=== PATIENT | female | born 1945 | race Caucasian/White ===

== ENCOUNTER → 2017-12-22 | Day surgery (SDC) | payer BC ==
[2017-12-03 14:35] VITALS: Ht 170.2 cm; Wt 90.9 kg
[~2017-12-22] VITALS: Ht 170.2 cm; Wt 90.9 kg
[~2017-12-22] MED LIST: 500ML BSS 0.3ML EPI 1:1000PF IRRIG ONE; ACETAMINOPHEN 325 MG TAB PO PRN; AMVISC PLUS 0.8ML SYRINGE INT OCU ONE; APPLCAP PO; ATROPINE SULFATE 0.1 MG/ML 5ML SYR IV PRN; BSS FLUSH ONE; CINN500C13 PO; CRAN405C3 PO; CYAN50005 PO; ENDOCOAT 0.85ML SYRINGE INT OCU ONE; EpHEDrine SULFATE INJ 50 MG/ML AMP IV PRN; EpINEphrine INJ 1MG/ML AMP 1 MG/ML AMP ONE; FLAX1CAP11 PO; GLC/500 PO; GLUC1CAP35 PO; INUL1CHW2 PO; KRIL1CAP24 PO; LACTATED RINGER'S 1000ML 1,000 ML IV SCH; LIDOCAINE 4% OP SOLN DROP CHARGE ONE; LIDOCAINE 4% OP SOLN DROP CHARGE OPL SCH; LIDOCAINE HCL 1% MPF 2 ML VIAL ONE; MIDAZOLAM HCL 1 MG/ML 2ML VIAL ONE; MIX: 4ML BSS 1ML EPI 1:1000 PF TOP ONE; MOXIFLOXACIN OPH SOLN PER DROP CHARGE ONE; MULT-506 PO; NAPR1TAB9 PO; ONDANSETRON INJ 2 MG/ML 2 ML VIAL IV PRN; POVIDONE-IODINE OP SOLN 30 ML BTL ONE; PROPARACAINE 0.5% OP SOLN PER DROP CHARGE OPL SCH; SACC250C11 PO; TOBRAMYCIN/DEXAMETHASONE OPH OINT PER APPLN CHARGE ONE; TURM500T PO
[2017-12-22] MEDS: PHENYLEPHRINE HCL 2.5% OP SOLN PER DROP CHARGE OPL SCH ×3 (06:43→06:51)
[2017-12-22] MEDS: TROPICAMIDE 1% OP SOLN PER DROP CHARGE OPL SCH ×3 (06:44→06:52)
[2017-12-22] MEDS: CYCLOPENTOLATE HCL 1% OP SOLN PER DROP CHARGE OPL SCH ×3 (06:45→06:52)
[2017-12-22] MEDS: MOXIFLOXACIN OPH SOLN PER DROP CHARGE OPL SCH ×3 (06:46→06:53)
--- NOTE | 2017-12-22 06:50 | History & Physical Bridge - [place] ---
H&P Re-Evaluation Bridge Note: I have examined the patient, reviewed the History & Physical and in the interval since the performance of the History & Physical I have noted the following changes of clinical significance: No changes noted
--- NOTE | 2017-12-22 07:24 | [facility] Post Operative Brief Note ---
Immediate Operative Summary Operative Date December 22, 2017. Pre-Operative Diagnosis Left Eye Cataract Post-Operative Diagnosis same as pre op Procedure(s) Performed Left Cataract Phacoemulsification With Intraocular Lens Implant; Toric Lens Surgeon Dr Contreras Founder Surgeon(s) none Estimated Blood Loss 0ml Findings Consistent with Post-Op Diagnosis Specimens none Anesthesia Type MAC Complication(s) none Disposition Accompanied Pt To Recovery: no Disposition:
--- NOTE | 2017-12-22 07:26 | [facility] Operative Report ---
Operative Report Date of Service December 22, 2017. Operative Report DATE OF OPERATION: 12/22/17 PREOPERATIVE DIAGNOSIS: Senile nuclear cataract and astigmatism, left eye POSTOPERATIVE DIAGNOSIS: Senile nuclear cataract and astigmatism, left eye PROCEDURE PERFORMED: Phacoemulsification with toric intraocular lens implantation, left eye SURGEON: Dr. Ravi Contreras ANESTHESIA: Topical with 1% intracameral lidocaine and monitored anesthesia care COMPLICATIONS: None DESCRIPTION OF PROCEDURE: After positively identifying the patient both verbally and by wristband in the preoperative area, the left eye was marked as the operative eye. Using a Robomarker, the 8 degree axis was marked after placing a drop of proparacaine. The patient was then brought back to the operating room by the anesthesia and nursing staff where they were given a drop of tetracaine and betadine into the operative eye. They were then sterilely prepped and draped in the standard fashion typical for ophthalmic surgery. Steri-strips were placed along the upper eyelids to keep the lashes back, and a lid speculum was placed into the operative eye. At this point, a documented time out was performed with members of the ophthalmology, nursing, and anesthesia staffs all agreeing upon the correct patient, correct location for surgery, correct procedure, and correct type and power of intraocular lens to be implanted. The microscope was then swung into position. Then, a paracentesis wound was made using a sideport blade. Then, in sequence, 1% preservative-free lidocaine followed by Endocoat viscoelastic was injected into the anterior chamber. Next , the main incision was made with a keratome blade in triplanar fashion. A sharp cystotome was introduced into the eye and used to create a tear in the anterior capsule, which was directed into a continuous curvilinear capsulorrhexis using Utrata forceps. Hydrodissection was then performed with BSS on a flat-tip cannula. Next, the phacoemulsification handpiece was introduced into the eye and used to remove the nucleus in a [id number] fashion. This was done without complication and then the irrigation-aspiration handpiece was introduced into the eye and used to remove all remaining cortical and epinuclear material. Amvisc was then injected into the anterior chamber as well as into the capsular bag and using the lens injector system, a [id number] 22.5 D lens, serial number [id number], and expiration date 03/2021 was injected into the capsular bag and rotated into the correct position to correctly line up with the toric marking. Next, the irrigation-aspiration handpiece was used to remove all remaining Amvisc. BSS was used to hydrate the main wound, and then BSS was injected into the paracentesis site to reach physiologic pressure and then the main wound was checked and found to be watertight. The patient was given drops of Vigamox and tobradex ointment into the operative eye, and then the surrounding area was cleaned and dried. A clear plastic shield was placed over the eye and the patient was then sat up and taken from the operating room by the anesthesia staff having tolerated the procedure well and suffering no complications. DISPOSITION: The patient was returned to the recovery room in stable condition. I attest to the content of the Intraoperative Record and any orders documented therein. Any exceptions are noted below.
--- NOTE | 2017-12-22 07:27 | Discharge Instructions-SurgCtr ---
Discharge Instructions Date of Service December 22, 2017. Visit Reason for Visit: Left Cataract Discharge Discharge Diagnosis / Problem: left cataract Discharge Goals Goal(s): Decrease discomfort, Improve function Medications Stopped Medications Name(s): Metformin stopped December 19 Activity Recommendations Activity Limitations: as noted below Anesthesia . Post Anesthesia Instructions: If you have had General Anesthesia or IV Sedation: * Do not drive today. * Resume driving when surgeon permits. * Do not make important decisions or sign legal documents today. * Call surgeon for: 1. Temperature elevations greater than 101 degrees F. 2. Uncontrollable pain. 3. Excessive bleeding. 4. Persistent nausea and vomiting. 5. Medication intolerance (nausea, vomiting or rash). * For nausea and vomiting use only clear liquids such as: tea, soda, bouillon until nausea subsides, then gradually increase diet as tolerated. * If you have any concerns or questions, call your surgeon's office. If physician is unavailable and it is an emergency, call 911 or go to the nearest emergency room. . Instructions / Follow-Up Instructions / Follow-Up ACTIVITY RECOMMENDATIONS: * Light activities. * You may walk outside, read, watch television. * You may notice redness on the white part of the eye and some blurry vision - this is normal. MEDICATIONS: Resume previous medications unless instructed otherwise by your surgeon. Start all eye drops at 9:30 am today: * Eye drops (today): Prednisone - one drop in operative eye every 2 hours while awake Polytrim - one drop in operative eye every 2 hours while awake Prolensa - one drop in operative eye daily SPECIAL CARE INSTRUCTIONS: * Tape plastic shield over eye to sleep at night. Call your doctor at with any concerns or problems. FOLLOW UP VISIT: Follow-up with Dr Contreras at [place] office as scheduled. Diet Recommendations Home Diet: no limitations Procedures Procedures Performed: Left Cataract Phacoemulsification With Intraocular Lens Implant; Toric Lens Pending Studies Studies pending at discharge: no Medical Emergencies . Who to Call and When: Medical Emergencies: If at any time you feel your situation is an emergency, please call 911 immediately. . Non-Emergent Contact Non-Emergency issues call your: Surgeon . . "Provider Documentation" section prepared by Ravi Contreras. .
[2017-12-22 07:52] VITALS: BP 122/80; PULSE 71; O2SAT 94
--- NOTE | 2017-12-22 07:57 | Anesthesiology Progress Note ---
Anesthesia Post Op Note Date & Time December 22, 2017 at 07:57 Vital Signs Pain Intensity: 0 Vital Signs Past 12 Hours Date Time Temp Pulse Resp B/P (MAP) Pulse Ox O2 Delivery O2 Flow Rate FiO2 12/22/17 07:52 71 18 122/80 (94) 94 Room Air 12/22/17 07:28 36.4 75 16 118/78 (91) 97 Room Air 12/22/17 06:30 36.7 82 16 149/87 (107) 95 Room Air Notes Mental Status: alert / awake / arousable, participated in evaluation Pt Amnestic to Procedure: Yes Nausea / Vomiting: adequately controlled Pain: adequately controlled Airway Patency, RR, SpO2: stable & adequate BP & HR: stable & adequate Hydration State: stable & adequate Anesthetic Complications: no major complications apparent
== END | disposition home or self-care (01) ==
LOC: X.SURG 06:11
PROVIDERS: ATTEND Ophthalmology
DX: E11.36 Type 2 diabetes mellitus with diabetic cataract (principal); H25.12 Age-related nuclear cataract, left eye; H52.202 Unspecified astigmatism, left eye; Z90.710 Acquired absence of both cervix and uterus; Z98.890 Other specified postprocedural states; Z79.899 Other long term (current) drug therapy; E66.9 Obesity, unspecified; Z68.31 Body mass index [BMI] 31.0-31.9, adult

== ENCOUNTER 2019-03-24 04:49 | Inpatient (IN) ==
--- NOTE | 2019-02-27 11:01 | Anesthesiology Consultation ---
Date of Service February 27, 2019 Assessment & Plan (1) Encounter for pre-operative examination: - No previous anesthesia records re: intubation Chart Review Chart Review: Patient seen in Pre Admission Testing Consults Requested none Teaching & Discussion Pre-Anesthesia Teaching/Discussion Notes: Instructed NPO after midnight before surgery, except medications with 15 cc of water. Medication instructions provided according to the PAT guidelines. History Surgery Operation Date: 03/24/19 08:50 Proposed Procedures p Left Total Knee Arthroplasty - Patrick Treadwell DO Height/Weight Height: 5 ft 7 in Weight: 113.5 kg Allergies Allergy/AdvReac Type Severity Reaction Status Date / Time metronidazole Allergy Unknown sores in Verified 02/21/19 10:53 mouth atorvastatin AdvReac Intermediate MYALGIAS Verified 02/21/19 10:53 cheese AdvReac Mild Italian Verified 02/21/19 10:53 cheese - itchy mouth Penicillins AdvReac Mild AMOXIL-DIAR Verified 02/21/19 10:53 JUAN J Cipro AdvReac Unknown FAMILY Verified 01/12/18 06:22 REACTION R/T TENDON RUPTURE ciprofloxacin AdvReac Unknown FAMILY Verified 02/21/19 10:54 REACTION R/T TENDON RUPTURE Medications Home Medications Medication Instructions Recorded Confirmed Last Taken apple cider vinegar 600 mg PO QAM 09/17/18 02/21/19 Unknown cinnamon bark [Cinnamon] 500 mg PO QAM 09/17/18 02/21/19 Unknown cyanocobalamin (vitamin B-12) 5,000 mcg PO 2XWK 09/17/18 02/21/19 Unknown glucosamine-chondroitin 1 tab PO QAM 09/17/18 02/21/19 Unknown multivitamin [Multiple Vitamins] 1 tab PO QAM 09/17/18 02/21/19 Unknown acetaminophen 500 mg PO DAILY PRN 02/21/19 02/21/19 Unknown cranberry 500 mg PO BID 02/21/19 02/21/19 Unknown ibuprofen 400 mg PO QAM 02/21/19 02/21/19 Unknown krill oil 500 mg PO QAM 02/21/19 02/21/19 Unknown lactobacillus combination no.4 3,000 mmu cells PO QAM 02/21/19 02/21/19 Unknown [Probiotic] loratadine 10 mg PO DAILY PRN 02/21/19 02/21/19 Unknown metformin 500 mg PO QDD 02/21/19 02/21/19 Unknown psyllium husk [Fiber (psyllium 0.52 g PO QAM 02/21/19 02/21/19 Unknown husk)] turmeric root extract 538 mg PO QAM 02/21/19 02/21/19 Unknown Past Medical History Medical History DJD (degenerative joint disease) of knee Diabetes mellitus, type 2 History of shingles Seasonal allergies Exercise / Class Metabolic Activity III < 4 Walking/Shop/Light housework (Light Housework. Can climb 2 FOS with pain. Denies CP or SOB with activity. ) Past Family History Family History Grandmother (Paternal) Family history of diabetes mellitus Past Surgical History Surgical History History of meniscectomy of left knee History of tonsillectomy and adenoidectomy Hx of bilateral cataract extraction Hx of vaginal hysterectomy ovaries remained Past Anesthesia History No Hx of Anesthesia Complications and No Family Hx of Anesthesia Complications History of PONV No Hx of PONV and No Hx of Motion Sickness (Not since childhood) Social History Smoking Status: Never smoker Do You Dip or Chew Tobacco: No Hx Alcohol Use: No Hx Substance Use: No Review of Systems Patient denies chest pain, shortness of breath, dyspnea on exertion, reflux, cough, wheezing, palpitations. +Joint Pain (Knees) Physical Exam Vital Signs BP: 146/86 P: 66 R: 16 T: 98.3 SPO2: 97% on RA Constitutional + morbidly obese ENMT Mouth: + macroglossia Thyromental Distance: < 3.5 Finger Breadths (2) Mallampati Class: II Neck normal visual inspection and trachea midline; neck extension not limited Respiratory normal respiratory effort Auscultation: lungs clear to auscultation bilaterally Cardiovascular Rate/Rhythm: regular rate and regular rhythm Heart Sounds: no murmur Vessels: no carotid bruit Neurologic moves all extremities Psychiatric Orientation: alert and oriented x 3 Testing Laboratory Results 02/27/19 11:44 02/27/19 11:44 PT 10.5 Seconds (9.0-12.0) 02/27/19 11:44 INR 1.0 (0.9-1.1) 02/27/19 11:44 APTT 24.4 Seconds (21.0-31.0) 02/27/19 11:44 Hemoglobin A1c 6.0 % (4.5-5.6) H 02/27/19 11:44 Urine Color Yellow 02/27/19 11:44 Urine Appearance Clear (Clear) 02/27/19 11:44 Urine pH 5.0 (4.5-7.5) 02/27/19 11:44 Ur Specific [place] 1.021 (1.000-1.030) 02/27/19 11:44 Urine Protein Negative (Negative) 02/27/19 11:44 Urine Glucose (UA) Negative (Negative) 02/27/19 11:44 Urine Ketones Trace (Negative) H 02/27/19 11:44 Urine Nitrite Negative (Negative) 02/27/19 11:44 Ur Leukocyte Esterase Trace (Negative) H 02/27/19 11:44 Urine WBC (Auto) 1-5 /hpf (0-5) 02/27/19 11:44 Urine RBC (Auto) 0-4 /hpf (0-4) 02/27/19 11:44 U Hyaline Cast (Auto) 1-5 /lpf (0-5) 02/27/19 11:44 U Epithel Cells (Auto) >30 /lpf (0-5) H 02/27/19 11:44 Urine Bacteria (Auto) Negative (Negative) 02/27/19 11:44 Blood Type O Negative 02/27/19 11:44 Antibody Screen NEGATIVE 02/27/19 11:44 Spoke to bloodbank regarding + direct antiglobulins. There stated that it is not positive enough to effect antibodies, but they did note it and will be able to make sure that blood is available for patient day of surgery. Nothing needs done as far as PAT is concerned. Electrocardiogram Date: 02/27/19 Findings: + NSR @ (69) Nonspecific T wave abnormality When compared with ECG of 04/24/13, Premature ventricular complexes are no longer present Chest X-Ray Date: 02/27/19 Findings: + NAD FINDINGS: The heart is at the upper limits of normal in size. There is no failure. There is no focal pulmonary consolidation. There are no pleural effusions. There is a linear band of subsegmental atelectasis at the left lung base IMPRESSION: No active disease in the chest.
--- NOTE | 2019-02-27 11:08 | PAT Medication Instructions ---
Medication Instructions Date of Service February 27, 2019 Home Medications apple cider vinegar 600 mg PO QAM cinnamon bark [Cinnamon] 500 mg PO QAM cyanocobalamin (vitamin B-12) 5,000 mcg PO 2XWK glucosamine-chondroitin 1 tab PO QAM multivitamin [Multiple Vitamins] 1 tab PO QAM acetaminophen 500 mg PO DAILY NEEDED cranberry 500 mg PO BID ibuprofen 400 mg PO QAM krill oil 500 mg PO QAM lactobacillus combination no.4 [Probiotic] 3,000 mmu cells PO QAM loratadine 10 mg PO DAILY NEEDED metformin 500 mg PO QDD psyllium husk [Fiber (psyllium husk)] 0.52 g PO QAM turmeric root extract 538 mg PO QAM ASK your surgeon for instructions ibuprofen 400 mg PO QAM STOP taking 2 weeks before surgery cinnamon bark [Cinnamon] 500 mg PO QAM glucosamine-chondroitin 1 tab PO QAM krill oil 500 mg PO QAM turmeric root extract 538 mg PO QAM DO NOT take the morning of surgery apple cider vinegar 600 mg PO QAM cyanocobalamin (vitamin B-12) 5,000 mcg PO 2XWK multivitamin [Multiple Vitamins] 1 tab PO QAM cranberry 500 mg PO BID lactobacillus combination no.4 [Probiotic] 3,000 mmu cells PO QAM loratadine 10 mg PO DAILY NEEDED psyllium husk [Fiber (psyllium husk)] 0.52 g PO QAM Take morning of surgery With a small sip of water, OTHERWISE NOTHING TO EAT OR DRINK AFTER MIDNIGHT: acetaminophen 500 mg PO DAILY NEEDED (if needed; stop 4 hours before surgery) Take evening before surgery acetaminophen 500 mg PO DAILY NEEDED (if needed) cranberry 500 mg PO BID metformin 500 mg PO QDD Other Notes If you have any questions please call us at [phone] or [phone] or [phone] or [phone]
[2019-02-27 12:20] LABS: Basophils # (auto) 0.05 K/uL (0-0.2); Basophils % (auto) 1.1 %; Eosinophils % (auto) 4.2 %; Hematocrit (blood only) 45.3 % (37-47); Hemoglobin 15.1 g/dL (12.0-16.0); Immature Granulocytes # (auto) 0.01 K/uL (0.00-0.02); Immature Granulocytes % (auto) 0.2 %; Lymphocytes % (auto) 37.8 %; Mean Corpuscular Hgb Conc 33.3 g/dL (32-36); Mean Platelet Volume 11.4 fL (7.4-10.4); Monocytes # (auto) 0.23 K/uL (0.11-0.59); Monocytes % (auto) 4.8 %; Neutrophils # (auto) 2.47 K/uL (1.4-6.5); Neutrophils % (auto) 51.9 %; Platelet Count 156 K/uL (130-400); RDW Coefficient of Variation 13.7 % (11.5-14.5); RDW Standard Deviation 40.6 fL (36.4-46.3); Red Blood Count 5.59 M/uL (4.2-5.4); White Blood Count 4.76 K/uL (4.8-10.8)
--- NOTE | 2019-02-27 12:28 | XRay Report ---
XR chest Pre-admission PA/Lat CLINICAL HISTORY: Preoperative chest COMPARISON STUDY: 04/23/2013 FINDINGS: The heart is at the upper limits of normal in size. There is no failure. There is no focal pulmonary consolidation. There are no pleural effusions. There is a linear band of subsegmental atele ctasis at the left lung base[ IMPRESSION: No active disease in the chest. Electronically signed by: Luis Gresham M.D. 02/27/2019 12:26 PM
[2019-02-27 12:33] LABS: Partial Thromboplastin Ratio 0.9; Partial Thromboplastin Time 24.4 Seconds (21.0-31.0); Prothrombin Time 10.5 Seconds (9.0-12.0)
[2019-02-27 13:02] LABS: Appearance Urine Clear (Clear); Bacteria Urine Automated Negative (Negative); Bilirubin Urine Negative (Negative); Blood Urine Negative (Negative); Color Urine Yellow; Epithelial Cell Urine Auto >30 /lpf (0-5); Glucose Urine UA Negative (Negative); Ketones Urine Trace (Negative); Leukocyte Esterase Urine Trace (Negative); Nitrite Urine Negative (Negative); Protein Urine Negative (Negative); RBC Urine Automated 0-4 /hpf (0-4); Specific Gravity Urine 1.021 (1.000-1.030); Urobilinogen Urine Negative (Negative)
[2019-02-27 13:23] LABS: Estimated Average Glucose 126 mg/dl
[2019-02-27 14:18] LABS: BUN Creatinine Ratio 24.2 (10-20); Calcium 9.7 mg/dl (8.5-10.1); Creatinine Clr Calc Pharmacy 85.4 ml/min; Est GFR (African American) 91.9; Est GFR (Non-African American) 79.3; Potassium 4.3 mmol/L (3.5-5.1)
[2019-03-24] MEDS ORDERED: FAMOTIDINE 20 MG TAB PO SCH (06:00)
[2019-03-24] MEDS ORDERED: ACETAMINOPHEN 500 MG TAB PO SCH (06:00)
[2019-03-24] MEDS ORDERED: CEFAZOLIN 2000MG 2,000 MG/15 ML SYR IV SCH (06:00)
[2019-03-24] MEDS ORDERED: GABAPENTIN 300 MG CAP PO SCH (06:00)
[2019-03-24] MEDS ORDERED: LR 60ML/HR IV SCH (06:00)
[2019-03-24] MEDS ORDERED: TRANEXAMIC ACID 1,000 MG **IV Pre-op IV SCH (06:00)
[2019-03-24] MEDS ORDERED: LR 500ML BOLUS, THEN 15ML/HR IV SCH (06:00)
[2019-03-24] MEDS ORDERED: ROPIVACAINE 0.5% HCL/PF 150 MG, BUPIVACAINE 0.5% MPF 30 ML, EPINEPHrine 30MG/30ML (OR U... INSTIL SCH (06:00)
[2019-03-24] MEDS ORDERED: ROPIVACAINE 0.5% 5 MG/ML 30 ML VIAL ONE (06:26)
[2019-03-24] MEDS ORDERED: BUPIVACAINE 0.5 % 5 MG/1 ML PF 10ML VIAL ONE (06:26)
[2019-03-24] MEDS ORDERED: TRANEXAMIC ACID 1,000 MG **IV Intra-op IV SCH (06:30)
[2019-03-24] MEDS ORDERED: ORTHO JOINT ANESTHETIC ONE (06:38)
[2019-03-24] MEDS ORDERED: LIDOCAINE HCL 2% 2 ML VIAL/AMP(20MG/ML) INFIL ONE (06:39)
[2019-03-24] MEDS ORDERED: fentaNYL citrate 100 MCG/2 ML VIAL ONE (06:39)
[2019-03-24] MEDS ORDERED: MIDAZOLAM HCL 1 MG/ML 2ML VIAL ONE (06:39)
[2019-03-24] MEDS ORDERED: PROPOFOL IV EMULSION 10 MG/ML 20 ML VIAL IV ONE ×2 (06:39→08:30)
--- NOTE | 2019-03-24 06:43 | History & Physical Bridge Note ---
Date of Service March 24, 2019 History & Physical Bridge Note I have examined the patient, reviewed the History & Physical and in the interval since the performance of the History & Physical I have noted the following changes of clinical significance: no changes noted
--- NOTE | 2019-03-24 06:46 | History & Physical Report ---
Date of Service March 24, 2019 Assessment & Plan (1) Osteoarthritis of left knee: We will proceed with a left total knee arthroplasty. Postoperatively she will be kept overnight in the hospital for postoperative medical management. We will use aspirin postoperatively for DVT prophylaxis. She plans to use energy physical therapy upon discharge. Present on Admission?: Yes History of Present Illness Chief Complaint: Primary osteoarthritis of the left knee Primary Care Provider: Joe Rivero DO Ashley is a pleasant 73-year-old female who is been having a 20-year history of increasing left knee pain. She had a cartilage procedure done over 50 years ago when she was younger. X-rays and clinical examination were diagnostic for advanced osteoarthritis of the left knee. After failing conservative treatment. She has elected to proceed with a left total knee arthroplasty. Allergies Allergy/AdvReac Type Severity Reaction Status Date / Time Cipro AdvReac Unknown FAMILY Verified 01/12/18 06:22 REACTION R/T TENDON RUPTURE Home Medications Home Medications Medication Instructions Recorded Confirmed Type apple cider vinegar 600 mg PO QAM 09/17/18 03/24/19 History cinnamon bark [Cinnamon] 500 mg PO QAM 09/17/18 03/24/19 History cyanocobalamin (vitamin B-12) 5,000 mcg PO 2XWK 09/17/18 03/24/19 History glucosamine-chondroitin 1 tab PO QAM 09/17/18 03/24/19 History multivitamin [Multiple Vitamins] 1 tab PO QAM 09/17/18 03/24/19 History acetaminophen 500 mg PO DAILY PRN 02/21/19 03/24/19 History cranberry 500 mg PO DAILY 02/21/19 03/24/19 History ibuprofen 400 mg PO QAM 02/21/19 03/24/19 History krill oil 500 mg PO QAM 02/21/19 03/24/19 History lactobacillus combination no.4 3,000 mmu cells PO QAM 02/21/19 03/24/19 History [Probiotic] loratadine 10 mg PO DAILY PRN 02/21/19 03/24/19 History metformin 500 mg PO QDD 02/21/19 03/24/19 History psyllium husk [Fiber (psyllium 0.52 g PO QAM 02/21/19 03/24/19 History husk)] turmeric root extract 538 mg PO QAM 02/21/19 03/24/19 History Past Med/Surg History Medical History Anaplasmosis (Acute) DJD (degenerative joint disease) of knee Diabetes mellitus, type 2 History of shingles Seasonal allergies Surgical History History of meniscectomy of left knee Hx of bilateral cataract extraction Hx of vaginal hysterectomy ovaries remained History of tonsillectomy and adenoidectomy Family History Grandmother (Paternal) Family history of diabetes mellitus Social History Preferred Language: Nigerian Communication Ability: Effective Beliefs That Will Affect Care: None Current Living Situation: Spouse Feels Safe at Home: Yes Safety Concerns: Feels Safe At This Time Smoking Status: Never smoker Do You Dip or Chew Tobacco: No ; Second Hand Exposure: No ; Hx Alcohol Use: No Hx Substance Use: No Review of Systems All systems reviewed & are unremarkable except as noted in HPI & below Physical Exam Constitutional: WD/WN, vitals as above Eyes: PERRL, conjunctivae normal, anicteric sclerae ENMT: external ear and nose normal, oropharynx normal Neck: trachea midline, no thyromegaly Respiratory: normal respiratory effort Cardiovascular: RRR, no murmur, no edema Gastrointestinal (Abdomen): normal bowel sounds, soft, nontender, no hepatosplenomegaly Musculoskeletal: On physical examination of the left knee there is a trace ef fusion. There is near full range of motion and no evidence of instability. There is significant tenderness palpation along the medial and lateral joint lines and over the distal femoral condyles. Psychiatric: A+Ox3, euthymic affect Results & Data Vital Signs (Past 12 Hours) Vital Signs Temp Pulse Resp BP Pulse Ox 03/24/19 05:44 37.2 C 83 20 149/84 H 95 Diagnostic Findings Radiographs of the left knee demonstrate advanced osteoarthritis with joint space narrowing osteophyte formation and [id number] articulation.
[2019-03-24] MEDS ORDERED: HYDROmorphone INJ 1 MG/ML SYRINGE IV PRN (07:22)
[2019-03-24] MEDS ORDERED: ONDANSETRON INJ 2 MG/ML 2 ML VIAL IV PRN ×2 (07:22→11:09)
[2019-03-24] MEDS ORDERED: ATROPINE SULFATE 0.1 MG/ML 10ML SYR IV PRN (07:22)
[2019-03-24] MEDS ORDERED: KETOROLAC 30 MG/ML VIAL IV PRN (07:22)
[2019-03-24] MEDS ORDERED: ePHEDrine sulfate 50 MG/ML AMP IV PRN (07:22)
[2019-03-24] MEDS ORDERED: ONDANSETRON INJ 2 MG/ML 2 ML VIAL ONE (07:43)
[2019-03-24] MEDS ORDERED: PHENYLEPHRINE 100MCG/ML 5ML SYR ONE (08:30)
--- NOTE | 2019-03-24 08:46 | Operative Report ---
Post Operative Report Pre & Post Diagnosis Operation Date: 03/24/19 07:00 Pre-Op Diagnosis: Left Knee Degenerative Joint Disease Post-Op Diagnosis: Left Knee Degenerative Joint Disease Procedure Operation Date: 03/24/19 07:00 Actual Procedures p Left Total Knee Arthroplasty(Left) - Patrick Treadwell DO Surgeon Patrick Treadwell DO Physicist [place] Patrick Paredes PAC Estimated Blood Loss 20 Findings Consistent with Post-Op Diagnosis Specimens Left femoral and tibial bone Complications none Disposition Disposition: Recovery Room Indications Ashley is a pleasant 73-year-old female who presented my office with chronic increasing left knee pain. X-rays and clinical examination were diagnostic for primary osteoarthritis of the left knee. After failing conservative treatment, she elected proceed with a left total knee arthroplasty. Description of Procedure Implants used: I used a [employer]omet Vanguard total knee arthroplasty system with a size 67.5 femur, 75 tibia, 31 patella, and a size 10 PS polyethylene bearing. All components were cemented in place with Palacos G cement. The patient arrived [facility] for the above procedure. There were seen in the preoperative holding area and the operative extremity was identified and signed. There were given a preoperative antibiotic, a spinal anesthetic and an adductor nerve block. There were taken back to the operating room and laid on the table in supine position. There were given basic sedation. The operative knee was then prepped and draped in sterile fashion. A timeout was done, and the patient and the operative extremity was properly identified. A midline incision was made directly over the patella. Dissection was taken down to the extensor mechanism. A subvastus arthrotomy was used. The medial retinaculum was released and the fat pad was mostly left intact. The knee was flexed and the ACL, PCL, and meniscus were removed. A drill was sent down the center of the femoral canal followed by an intramedullary pratibha. Off that pratibha a distal femoral cutting block was placed. 9 mm was resected off the distal femur at 5 of valgus. A posterior referencing AP sizing guide was then placed on the distal femur. The femur measured to be a size 67.5. 2 drill holes were placed in 3 of external rotation. A 4-in-1 cutting block was then impacted into place. Anterior posterior and chamfer cuts were then made. The posterior stabilizing box guide was then impacted into place and the box was resected for the posterior stabilizing component. The proximal tibia was then exposed. A drill was sent down the center of the tibial canal followed by an intramedullary pratibha. Off that pratibha a proximal tibial resection guide was placed. The proximal tibia was then resected. The tibia measured to be a size 75. The tibial plate was then placed in the appropriate rotation and the tibia was punched. The posterior aspect of the knee was then opened up and any additional meniscus fragments and osteophytes were removed. Trial components were then placed. I used a size 10 PS polyethylene insert. The knee was brought through a full range of motion and felt to be stable. The patella was then everted and 8 mm was resected off the posterior aspect of the patella. The patella measured to be a size 31. 3 peg holes were then drilled. A trial patella was placed. The knee was once again brought through a full range of motion and felt to be stable. Trial components were then removed. The surrounding soft tissues were injected with 100 cc of an orthopedic pain control cocktail. All components were then cemented into place with Palacos G cement. The final polyethylene insert was then snapped into place and the anterior bar was locked. Once cement was dry the tourniquet was deflated. Hemostasis was obtained. A dilute betadyne lavage was then done for 3 minutes. The joint was then irrigated with normal saline solution. The subvastus arthrotomy was then closed with #1 Vicryl suture. The skin was closed with 2-0 Vicryl, 3-0V lock suture, and alexy. A soft compressive dressing was placed. The patient was then transferred to a hospital bed and taken to the postanesthesia care unit in stable condition. They tolerated the procedure well. I attest to the content of the Intraoperative Record and any orders documented therein. Any exceptions are noted below.
--- NOTE | 2019-03-24 09:52 | XRay Report ---
LEFT KNEE 2 VIEWS History: Left total knee arthroplasty. Degenerative arthritis. Postop. FINDINGS: The patient is status post a left total knee arthroplasty. The hardware is intact. No fract ure or dislocation. Skin alexy in place. IMPRESSION: Left total knee arthroplasty. No evidence for hardware complication. Electronically signed by: Sushil Rebollar M.D. 03/24/2019 9:50 AM
--- NOTE | 2019-03-24 10:19 | Anesthesiology Progress Note ---
Date of Service March 24, 2019 Anesthesia Post Procedure Vital Signs Vital Signs: Temp Pulse Pulse Resp BP Pulse Ox 03/24/19 10:15 69 16 114/60 97 03/24/19 10:05 70 18 107/66 93 03/24/19 09:55 73 15 107/58 L 97 03/24/19 09:45 71 14 102/59 L 97 03/24/19 09:35 66 18 103/60 95 03/24/19 09:25 70 16 115/67 94 03/24/19 09:15 72 19 104/64 93 03/24/19 09:05 36.9 C 85 15 96/54 L 95 03/24/19 05:44 37.2 C 83 20 149/84 H 95 Transfer of Care Handoff Completed per policy Notes Mental Status: alert / awake / arousable Patient Amnestic to Procedure: Yes Nausea / Vomiting: adequately controlled Pain: adequately controlled Airway Patency, RR, SpO2: stable & adequate BP & HR: stable & adequate Hydration State: stable & adequate Neuraxial Anesthesia: was administered and sensory block is resolving Anesthetic Complications: no major complications apparent
[2019-03-24] MEDS ORDERED: BISACODYL 10 MG SUPP PR PRN (11:09)
[2019-03-24] MEDS ORDERED: HYDROmorphone INJ 0.5 MG/0.5 ML SYR IV PRN (11:09)
[2019-03-24] MEDS ORDERED: LORATADINE 10 MG TAB PO PRN (11:09)
[2019-03-24] MEDS ORDERED: MAGNESIUM HYDROXIDE SUSP 30 ML UDC PO PRN (11:09)
[2019-03-24] MEDS ORDERED: METOCLOPRAMIDE HCL INJ 5 MG/ML 2 ML VIAL IV PRN (11:09)
[2019-03-24] MEDS ORDERED: OXYCODONE HCL IR 5 MG TAB (IMMEDIATE RELEASE) PO PRN (11:09)
[2019-03-24] MEDS ORDERED: NALOXONE HCL 0.4 MG/1 ML VIAL/CARP IV PRN (11:09)
[2019-03-24] MEDS: SODIUM CHLORIDE 0.9% 1000ML 1,000 ML IV SCH ×2 (11:32→21:52)
[2019-03-24] MEDS: KETOROLAC TROMETHAMINE 15 MG/ML VIAL IV SCH ×3 (11:32→23:41)
[2019-03-24] MEDS ORDERED: PHARMACY GLYCEMIC MGMT CONSULT PRN (11:35)
[2019-03-24] MEDS ORDERED: DEXTROSE 50% 50 ML SYRINGE IV PRN (11:45)
[2019-03-24] MEDS ORDERED: CARBOHYDRATES FOR HYPOGLYCEMIA PO PRN (11:45)
[2019-03-24] MEDS ORDERED: GLUCOSE 40% GEL 15 GM TUBE PO PRN (11:45)
[2019-03-24] MEDS ORDERED: GLUCOSE 10 TABS/TUBE PO PRN (11:45)
[2019-03-24] MEDS ORDERED: GLUCAGON FOR INJ 1 MG VIAL IM PRN (11:45)
[2019-03-24] MEDS: INSULIN ASPART 100 UNITS/ML 3 ML PEN SC SCH ×3 (13:04→21:20)
[2019-03-24] MEDS: ACETAMINOPHEN 500 MG TAB PO SCH ×2 (13:22→21:19)
[2019-03-24] MEDS: CEFAZOLIN 2000MG 2,000 MG/15 ML SYR IV SCH ×2 (13:23→22:15)
--- NOTE | 2019-03-24 14:20 | Pharmacy Report ---
Glycemic Control Consultation - Date of Service March 24, 2019 - Scope Scope: Glycemic Pharmacist consulted by EMMA Paredes on 03/24/19 for glycemic control and to write orders per [facility] inpatient glycemic control protocol - Objective Weight: 111.7 kg Accuchecks BSG (last 24hrs): 03/24/19 03/24/19 03/24/19 05:32 09:13 12:16 POC Glucose 124 H 113 H 112 H HbA1c: Hemoglobin A1c 6.0 % (4.5-5.6) H 02/27/19 11:44 - Recent Pertinent Medications Outpatient Anti-diabetic Regimen: * metformin 500 mg QDD * A1c = 6.0 % Risk Factors for Insulin Resistance: * Steroids: dexamethasone 4 mg topically * Recent Surgery: POD 0 for L TKA * Diet: T2DM - Assessment & Plan Assessment & Plan: ASSESSMENT: * Ms Chaudhary is a 73 y/o F with a PMH of well controlled T2DM on oral medications. She presents with L TKA. * Since patient only received topical dexamethasone 4 mg with a WELL controlled outpatient HbA1C, will utilize weight-based stress of 2 Novolog (concern for using weight-based stress of 3 in obese individual -- may be too aggressive). Schedule small dose of Lantus for this evening depending on blood sugar. Goal is to cover blood sugar spikes with Novolog rather than Lantus * Pt is maintained on oral antidiabetic agents as an outpatient * Oral agents are not recommended for inpatient use d/t drug interactions, changing PO intake, and difficulty titrating for acute hyper/hypoglycemia. ADA recommends re-initiating outpatient oral agents 1-2 days prior to discharge if/when appropriate if they were held on admission. * Will hold oral agents for admission and utilize SQ basal bolus insulin regimen which is the recommended regimen for inpatient glycemic control. * Will initiate weight based insulin dosing for insulin mayelin patient and titrate based on BSG trends. * plan to resume metformin POD 1 or 2 depending on intake and kidney function * ADA & AACE recommend a goal blood sugar range 140-180 mg/dl for the majority of critically ill & non-critically ill patients. However, more stringent targets may be selected in individual cases. Will utilize more stringent goal of 110-140mg/dl based on patient age & comorbidities. Additionally, tighter glycemic control is warranted to facilitate wound/infection healing. PLAN FOR INPATIENT GLYCEMIC CONTROL: * Holding outpatient oral diabetes medications - plan to resume tomorrow or POD 2 * Basal insulin * Lantus 0-15 units SQ HS x 1 * no Lantus if blood sugar 160 mg/dL * 10 units if blood sugar 160-180 mg/dL * 15 units if blood sugar over 180 mg/dL * Bolus insulin * NovoLog per scale ACHS or Q6hrs while NPO * Goal Range: Low 110 mg/dL - High 140 mg/dL * Correction Factor: 25 mg/dL/unit * Nutritional / Prandial insulin per carb ratio of 1 unit per 8 grams CHO consumed RECOMMENDATION FOR DISCHARGE * patient's HbA1C well controlled - continue home regimen. * Please note that the plan above was derived based on current level of insulin resistance and hospital stress. These recommendations are appropriate for inpatient admission only. Plan of care upon discharge will need to be reassessed to avoid potential outpatient hypo/hyperglycemia. Thank you.
[2019-03-24] MEDS ORDERED: METFORMIN HCL 500 MG TAB PO SCH (16:30)
[2019-03-24] MEDS ORDERED: LANTUS PER UNIT CHARGE SQ SCH (21:00)
[2019-03-24] MEDS: SENNA 8.6 MG TAB PO SCH (21:19)
[2019-03-24] MEDS: DOCUSATE SODIUM 100 MG CAP PO SCH (21:19)
[2019-03-24] MEDS: ASPIRIN 81 MG ECTAB PO SCH (21:19)
[2019-03-25] MEDS: ACETAMINOPHEN 500 MG TAB PO SCH ×3 (05:16→21:28)
[2019-03-25] MEDS: KETOROLAC TROMETHAMINE 15 MG/ML VIAL IV SCH ×4 (05:16→23:47)
[2019-03-25 06:47] LABS: Hematocrit (blood only) 39.2 % (37-47); Mean Corpuscular Hgb Conc 33.2 g/dL (32-36); Mean Corpuscular Volume 80.5 fL (80-100); Mean Platelet Volume 10.6 fL (7.4-10.4); Platelet Count 142 K/uL (130-400); RDW Coefficient of Variation 13.5 % (11.5-14.5); RDW Standard Deviation 39.4 fL (36.4-46.3); Red Blood Count 4.87 M/uL (4.2-5.4); White Blood Count 7.61 K/uL (4.8-10.8)
--- NOTE | 2019-03-25 06:47 | Orthopedic Progress Note ---
Date of Service March 25, 2019 Assessment & Plan (1) Osteoarthritis of left knee: Overall she is doing fairly well. She will be seen by physical therapy this morning for ambulation and range of motion exercises. She is on aspirin twice a day for DVT prophylaxis. Tomorrow morning the dressing can be changed and she can be discharged to home with outpatient physical therapy. Present on Admission?: Yes Subjective Ashley was seen and examined at bedside this morning. Overall she is doing fairly well. She is not having much pain in the left knee. She was able to ambulate to the bathroom but she has not been into the hallways yet. She has no complaints. Physical Exam Musculoskeletal: On physical examination of the left knee, the dressing is clean and dry. Her legs out in full extension. She is active dorsiflexion and plantarflexion of her left ankle. She still is a little bit of numbness on the dorsal aspect of her foot. Results & Data Vital Signs (Past 12 Hours) Vital Signs Temp Pulse Pulse Resp BP Pulse Ox 03/25/19 03:00 36.4 C L 87 16 137/73 97 03/24/19 23:12 36.5 C 83 16 136/77 97 03/24/19 19:09 36.5 C 76 16 144/81 H 96 Diagnostic Findings Postoperative x-rays of the left knee show the prosthesis to be in anatomic alignment without any evidence of fracture, dislocation, or loosening. PG Care Time/CCT Total # of Minutes Spent Total Time Spent with Patient: Total time spent is greater than 50% in coordination of care (as documented) at patient's floor/unit and/or counseling patient:
[2019-03-25 07:25] LABS: Calcium 8.2 mg/dl (8.5-10.1); Creatinine Clr Calc Pharmacy 89.5 ml/min; Est GFR (African American) 98.2; Est GFR (Non-African American) 84.8; Potassium 3.9 mmol/L (3.5-5.1)
[2019-03-25] MEDS: MULTIVITAMIN TAB PO SCH (09:19)
[2019-03-25] MEDS: DOCUSATE SODIUM 100 MG CAP PO SCH ×2 (09:19→21:28)
[2019-03-25] MEDS: ASPIRIN 81 MG ECTAB PO SCH ×2 (09:19→21:28)
[2019-03-25] MEDS: INSULIN ASPART 100 UNITS/ML 3 ML PEN SC SCH ×4 (09:24→21:22)
[2019-03-25] MEDS ORDERED: METFORMIN HCL 500 MG TAB PO SCH (16:30)
[2019-03-25] MEDS: SENNA 8.6 MG TAB PO SCH (21:29)
[2019-03-26] MEDS: ACETAMINOPHEN 500 MG TAB PO SCH (05:29)
[2019-03-26] MEDS: KETOROLAC TROMETHAMINE 15 MG/ML VIAL IV SCH (05:29)
[2019-03-26] MEDS: DOCUSATE SODIUM 100 MG CAP PO SCH (07:29)
[2019-03-26] MEDS: ASPIRIN 81 MG ECTAB PO SCH (07:29)
[2019-03-26] MEDS: MULTIVITAMIN TAB PO SCH (07:29)
[2019-03-26] MEDS: INSULIN ASPART 100 UNITS/ML 3 ML PEN SC SCH (07:33)
--- NOTE | 2019-03-26 08:30 | Progress Note ---
DATE: 03/26/2019 SUBJECTIVE: A 73-year-old white female postop day 2 from a left knee replacement. She is doing pretty well. Pain is controlled. Therapy is going well. Denies any chest pain or shortness of breath. Not feeling dizzy or lightheaded. OBJECTIVE: VITAL SIGNS: Temperature 36.8. Vital signs stable. GENERAL: Shows a pleasant, middle-aged female. She is sitting up in her bedside chair, looks comfortable. EXTREMITIES: Examination of the left leg reveals the dressing to be in place. Just a little bit of bloody drainage. Calf is soft and supple. She can do a straight leg raise. She can dorsiflex and plantarflex her foot appropriately. She is neurologically intact. ASSESSMENT: A 73-year-old white female postoperative day 2 from a left knee replacement, doing well. Pain is controlled. She is neurologically intact. PLAN: We are going to continue DVT prophylaxis. She is planning to be discharged to home and do outpatient therapy. We will continue routine wound care. She will follow up with Dr. Treadwell in 2 weeks.
--- NOTE | 2019-03-30 09:23 | Discharge Summary ---
Date of Service March 30, 2019 Admission HPI Per Admitting Provider Ashley is a pleasant 73-year-old female who is been having a 20-year history of increasing left knee pain. She had a cartilage procedure done over 50 years ago when she was younger. X-rays and clinical examination were diagnostic for advanced osteoarthritis of the left knee. After failing conservative treatment. She has elected to proceed with a left total knee arthroplasty. Principal Diagnosis Left total knee arthroplasty Discharge Data Allergies Allergy/AdvReac Type Severity Reaction Status Date / Time Cipro AdvReac Unknown FAMILY Verified 01/12/18 06:22 REACTION R/T TENDON RUPTURE ciprofloxacin AdvReac Unknown FAMILY Verified 03/24/19 11:36 REACTION R/T TENDON RUPTURE Consultations 03/24/19 11:09 Consult Case Management - Discharge Planning Routine Procedures Performed Operation Date: 03/24/19 07:00 Actual Procedures p Left Total Knee Arthroplasty(Left) - Patrick Treadwell DO Ordered Studies 03/24/19 05:00 US - OR guided needle placemen Routine Hospital Course (1) Osteoarthritis of left knee: On March 24, 2019 Ashley arrived at [facility] and underwent a left total knee arthroplasty without complication. She had a spinal anesthetic and a left abductor nerve block. Postoperatively she was started on aspirin for DVT prophylaxis and discharged to general orthopedic floors. Her hospital course was uneventful. On postop day #1 her H&H was stable and her pain was well controlled. She was able to participate well with physical therapy doing ambulation and range of motion exercises. On postop day #2 the dressing was changed. She continued to do well. She participated well with physical therapy. She was then discharged home with outpatient physical therapy. She will follow-up with orthopedics in 2 weeks. Total Time Total Time Spent Total Time Spent (In Minutes): 20 Discharge Plan Discharge Items Patient Disposition: Home - Self-Care Reason For Visit: Left Knee Degenerative Joint Disease Discharge Diagnosis: Left total knee arthroplasty Discharge Goals: Decrease discomfort and Improve function Activity: Per 'Additional Instructions' section Non-emergency contact: Surgeon Call non-emergency contact if: your wound has increased redness and your wound has increased drainage Follow-up/Referrals: Joe Rivero DO [Primary Care Provider] - Diet: Carb Consistent or DM2 Addtl Provider Instructions: Activity and Therapy Recommendations: * If you are using [facility] then therapy will be provided at your home until they feel you have accomplished all of your goals. * If you are using [facility] then Physical Therapy will be provided until they feel you are ready to start Outpatient Physical Therapy. * If you are not using home therapy then Outpatient Physical Therapy should start about 3-5 days from your day of surgery. Therapy will last about 6-10 weeks * It is important not to put a pillow under your knee when you are relaxing or sleeping. It is just as important to make sure you are getting your knee perfectly straight as it is to regain your knee bend. * You were shown a series of exercises in the hospital. Do these exercises three times each day including the exercises you were shown in physical therapy. * Get up and walk several times each day. For the first four weeks, try not to stand or walk for more than one hour at a time. If you do stand or walk for more than one hour, you will not hurt anything, but your leg will likely swell. * As you feel comfortable, you may change from the walker or crutches to a cane and then to independent walking. Medications: * Narcotic You will likely be sent home from the hospital with a prescription for the narcotic pain medication that worked best throughout your stay. * Aspirin Most patients will be required to take Aspirin 81mg twice a day for 6 weeks after surgery. This is obtained [id number] and a prescription is not necessary. * Other medications may be prescribed for specific circumstances. If you have any questions, please call the office at . * Resume previous home medications unless otherwise instructed TEDs/Elastic Stockings: The white elastic stockings help limit swelling and prevent blood clots from forming in your legs.~ The more you wear them, the more they work. Wear them for six weeks. Dressing Care: If the incision is not draining then you may leave the alexy open to air. If there is a little bit of drainage or if the alexy are getting stuck on your clothing then cover the incision with a dry dressing. The alexy will be removed at your 2 week follow-up appointment. Showering: You may shower 5 days from the day of surgery. Let the soapy shower water run over the alexy and pat them dry. Do not scrub or soak the incision. Things To Watch For: * Drainage from the incision site that occurs more than one week after your surgery. * Increased redness at the incision site. * Fever above 102 degrees Fahrenheit. * Unusual chest pain or shortness of breath. * Call [facility] at with any of the above problems Follow-Up Visit: Follow-up with Dr. Treadwell 2-3 weeks after your day of surgery. An appointment was probably scheduled when you signed-up for surgery in the office. If you have any questions call Office Instructions: More detailed instructions as well as Frequently Asked Questions were provided in a folder by our office when you signed-up for surgery. Please review these instructions when you get home. If you have any further questions or concerns, please feel free to call the off ice at [phone] Prescriptions: New aspirin [Adult Low Dose Aspirin] 81 mg tablet,delayed release (DR/EC) 81 mg PO BID Qty: 40 RF: 0 tramadol 50 mg tablet 50 mg PO Q6H PRN (Reason: pain) Qty: 40 RF: 0 Continued apple cider vinegar 600 mg Capsule 600 mg PO QAM RF: 0 cinnamon bark [Cinnamon] 500 mg Capsule 500 mg PO QAM RF: 0 cyanocobalamin (vitamin B-12) 5,000 mcg Capsule 5,000 mcg PO 2XWK RF: 0 multivitamin [Multiple Vitamins] Tablet 1 tab PO QAM RF: 0 glucosamine-chondroitin 250-200 mg Tablet 1 tab PO QAM RF: 0 metformin 500 mg Tablet 500 mg PO QDD RF: 0 ibuprofen 200 mg Tablet 400 mg PO QAM RF: 0 cranberry 500 mg Capsule 500 mg PO DAILY RF: 0 psyllium husk [Fiber (psyllium husk)] 0.52 gram Capsule 0.52 g PO QAM RF: 0 krill oil 500 mg Capsule 500 mg PO QAM RF: 0 Probiotic 3 billion cell Capsule 3,000 mmu cells PO QAM RF: 0 turmeric root extract 538 mg Capsule 538 mg PO QAM RF: 0 acetaminophen 500 mg Tablet 500 mg PO DAILY PRN (Reason: Pain) RF: 0 loratadine 10 mg Capsule 10 mg PO DAILY PRN (Reason: allergies) RF: 0 Stand-Alone Forms: [facility], [facility] Discharge Orders: Discharge Order (Routine); Ordered 03/26/19 Ordered By: Poncho Mcfadden Admission Data Admit Date/Time: 03/24/19 09:10 Attending Provider: Patrick Treadwell Admit Provider: Patrick Treadwell Primary Care Provider: Joe Rivero Service: Surgical Services Other Interventions: Discharge Summary Assessment (RN) Last Done: 03/26/19 09:03 DC Date/Time DO NOT enter until pt leaves facility: 03/26/19 10:29
== END 2019-03-26 10:29 | disposition home or self-care (01) | DRG 470 ==
LOC: ASU 04:49 → 3E 09:10
DX: E11.9 Type 2 diabetes mellitus without complications; Z90.710 Acquired absence of both cervix and uterus; M17.12 Unilateral primary osteoarthritis, left knee; Z79.84 Long term (current) use of oral hypoglycemic drugs